=== PATIENT | female | born 1970 | race Caucasian/White ===

== ENCOUNTER 2018-08-27 19:12 | Observation (INO) | payer OTHER ==
--- NOTE | 2018-08-27 19:24 | EDPHY ---
HPI/HX/ROS/PE/MDM Narrative: CHIEF COMPLAINT: Possible leg infection HPI: This patient is a generally healthy 48-year-old female. She returned tonight from a trip to [place] and is concerned due to an infection in her leg secondary to a cut she sustained while travelling. On Wednesday or Wednesday, she cut her zuniga on the edge of a wooden bed frame. Following this, she swam in [facility] and pools in [facility]. She noted surrounding erythema on Wednesday, and later that day she saw a doctor in [place]. She was prescribed Clindamycin, which she took on Wednesday and . night she started taking levofloxacin in addition. She and her trip-mates also had a GI illness while traveling and she endorses associated fevers and chills. She denies feeling febrile currently. She notes she has not been able to eat much in several days, but has stayed well -hydrated. Her was also recently diagnosed with strep, and the patient complains of some throat discomfort. No chest pain, shortness of breath, neurologic deficits, or other associated symptoms. REVIEW OF SYSTEMS: A comprehensive 10 system review of systems is otherwise negative aside from elements mentioned in the history of present illness and medical decision making. PMH: Depression SOCIAL HISTORY: . Employed. Lives in [place]. PHYSICAL EXAM: General:Patient is alert, in no acute distress. ENT:Eyes are normal to inspection. ENT inspection normal. Neck: Normal inspection. Full range of motion. Respiratory:No respiratory distress. Breath sounds normal bilaterally. Cardiovascular: Regular rate and rhythm. Strong peripheral pulses. Normal cap refill. Abdomen:The abdomen is nontender to palpation. There are no peritoneal signs. There are normal bowel sounds. Back: Normal to inspection. No tenderness to palpation. Skin: Normal color. No rash. Warm and dry. Extremities: Left leg: Small scabbed abrasion on the anterior zuniga with surrounding erythema and swelling which extends circumferentially from just proximal to the knee to the top of the foot. Right leg: Normal appearance. Full range of motion. Neuro: Oriented x3. Normal motor function. Normal sensory function. ED Course: 48 y/o female presents with left leg cellulitis secondary to a cut she sustained while vacationing in [place]. She has been taking four days of antibiotic therapy (four days Clindamycin TID, two days dual therapy with Levaquin). Plan to consult with infectious disease. Plan for x-ray of the left fibula. Plan for labs including CBC, chemistries, blood cultures. She is afebrile, hemodynamically stable. 19:[address] Langley, infectious disease specialist. Plan to administer 1g IV Rocephin if patient goes home vs. Ancef if the patient stays in hospital. Discussed admission vs. return tomorrow for repeat dose of IV antibiotics. Patient prefers to go home at this time and agrees to return tomorrow morning for a repeat dose. Her first dose of IV ceftriaxone will be administered now. Erythematous region has been marked with a skin-marking pen as of 20:30. 20:45 Patient has agreed to stay for IV antibiotics and observation. I concur that this is medically appropriate plan given the progression of her cellulitis despite dual therapy with oral antibiotics. 20:[address] Franks, hospitalist. He accepts admission for left leg cellulitis. ID to consult tomorrow morning. - Data Points Imaging Results: Imaging Impressions Tibia/Fibula X-Ray 08/27/18 19:37 Impression: No evidence for acute osseous abnormality left tibia and fibula. Laboratory Results: Laboratory Results 08/27/18 19:40 08/27/18 19:40 08/27/18 08/27/18 19:40 19:40 WBC 10.63 10^3/uL H 10^3/uL (3.80-9.50) RBC 4.04 10^6/uL L 10^6/uL (4.18-5.33) Hgb 13.0 g/dL g/dL (12.6-16.3) Hct 38.4 % % (38.0-47.0) MCV 95.0 fL fL (81.5-99.8) MCH 32.2 pg pg (27.9-34.1) MCHC 33.9 g/dL g/dL (32.4-36.7) RDW 12.6 % % (11.5-15.2) Plt Count 209 10^3/uL 10^3/uL (150-400) MPV 9.4 fL fL (8.7-11.7) Neut % (Auto) 73.3 % % (39.3-74.2) Lymph % (Auto) 8.4 % L % (15.0-45.0) Cottle % (Auto) 15.3 % H % (4.5-13.0) Eos % (Auto) 1.9 % % (0.6-7.6) Baso % (Auto) 0.3 % % (0.3-1.7) Nucleat RBC Rel Count 0.0 % % (0.0-0.2) Absolute Neuts (auto) 7.79 10^3/uL H 10^3/uL (1.70-6.50) Absolute Lymphs (auto) 0.89 10^3/uL L 10^3/uL (1.00-3.00) Absolute Monos (auto) 1.63 10^3/uL H 10^3/uL (0.30-0.80) Absolute Eos (auto) 0.20 10^3/uL 10^3/uL (0.03-0.40) Absolute Basos (auto) 0.03 10^3/uL 10^3/uL (0.02-0.10) Absolute Nucleated RBC 0.00 10^3/uL 10^3/uL (0-0.01) Immature Gran % 0.8 % % (0.0-1.1) Immature Gran # 0.09 10^3/uL 10^3/uL (0.00-0.10) RBC/WBC/PLT Morphology TNP Platelet Estimate TNP Sodium 132 mEq/L L mEq/L (135-145) Potassium 3.1 mEq/L L mEq/L (3.5-5.2) Chloride 95 mEq/L L mEq/L (97-110) Carbon Dioxide 26 mEq/l mEq/l (22-31) Anion Gap 11 mEq/L mEq/L (6-14) BUN 6 mg/dL L mg/dL (7-23) Creatinine 0.7 mg/dL mg/dL (0.6-1.0) Estimated GFR > 60 Glucose 89 mg/dL mg/dL (70-100) Calcium 9.2 mg/dL mg/dL (8.5-10.4) Medications Given: Discontinued Medications Ceftriaxone Sodium/Dextrose (Rocephin 1 Gm (Premix)) 50 mls @ 100 mls/hr IV EDNOW ONE PRN Reason: Protocol Stop: 08/27/18 20:47 Last Admin: 08/27/18 20:23 Dose: 50 mls General Time Seen by Provider: 08/27/18 19:19 Initial Vital Signs: Initial Vital Signs Temperature (C) 36.2 C 08/27/18 19:16 Heart Rate 95 08/27/18 19:16 Respiratory Rate 16 08/27/18 19:16 Blood Pressure 103/69 08/27/18 19:16 O2 Sat (%) 98 08/27/18 19:16 O2 Delivery Mode Room Air Allergies/Adverse Reactions: No Known Allergies Allergy (Verified 08/27/18 21:35) Home Medications: Medication Instructions Recorded Cholecalciferol Vit D3 [Vitamin D3 1,000 units PO DAILY PRN 08/27/18 (*)] Citalopram Hydrobromide 10 mg PO DAILY 08/27/18 [Citalopram HBr] Melatonin [Melatonin 3 MG (*)] 3 mg PO HS PRN 08/27/18 Milk Thistle 500 mg PO DAILY PRN 08/27/18 Departure - Departure Disposition: [facility] Inpatient Acute Clinical Impression: Cellulitis Qualifiers: Site of cellulitis: extremity Site of cellulitis of extremity: lower extremity Laterality: left Qualified Code(s): L03.116 - Cellulitis of left lower limb Condition: Fair Report Scribed for: Don Joseph Report Scribed by: Danelle Brooks Date of Report: 08/27/18 Time of Report: 19:24 Physician Review and Approval Statement: Portions of this note were transcribed by an ED scribe. I personally performed the history, physical exam, and medical decision making; and confirm the accuracy of the information in the transcribed note.
[2018-08-27 19:55] LABS: PLATELET COUNT 209 10^3/uL (150-400)
[2018-08-27] MEDS ORDERED: ACETAMINOPHEN 325 MG TAB PO PRN (21:31)
[2018-08-27] MEDS ORDERED: ONDANSETRON DISINTEGRATING 4 MG TAB PO PRN (21:31)
[2018-08-27] MEDS ORDERED: ONDANSETRON 4 MG/2 ML VIAL IVP PRN (21:31)
[2018-08-27] MEDS ORDERED: MELATONIN 3 MG TAB PO PRN (21:40)
--- NOTE | 2018-08-27 21:44 | PDGENHP ---
History and Physical - Chief Complaint Left leg pain and swelling - History of Present Illness Rosio Garcia is a pleasant 48-year-old female with no significant past medical history presented with 4-5 days of left leg pain and swelling. She has been in [facility] for the last week. Around Wednesday she cut herself on the bed at her hotel on her left zuniga. The following day she swam in the ocean and shortly after that started noticing increased pain redness and swelling in her zuniga. She saw local physician who started her on clindamycin 300 mg. Her leg continued to swell and had more redness so she saw the physician again who started her on Levaquin 750 mg. This did not help either and her leg continued to swell and became more painful and erythematous. She flew back from [place] today and came directly to the hospital. She has not had any fevers or chills. Her leg feels like a "bad sunburn" and is very painful to try to walk on. She also has some mild GI upset which she attributes to the antibiotics although she says everybody in her group developed GI upset after swimming in the ocean. She denied any nausea vomiting or other symptoms. History Information - Allergies/Home Medication List Allergies/Adverse Reactions: No Known Allergies Allergy (Verified 08/27/18 21:35) Home Medications: Cholecalciferol Vit D3 [Vitamin D3 (*)] 1,000 units PO DAILY PRN 08/27/18 [Last Taken 08/20/18] Citalopram Hydrobromide [Citalopram HBr] 10 mg PO DAILY 08/27/18 [Last Taken 09:00] Melatonin [Melatonin 3 MG (*)] 3 mg PO HS PRN 08/27/18 [Last Taken Unknown] Milk Thistle 500 mg PO DAILY PRN 08/27/18 [Last Taken 08/20/18] I have personally reviewed and updated: family history, medical history, social history, surgical history - Past Medical History no pertinent PMH - Surgical History Reports: no pertinent surgical hx - Family History Positive for: non-pertinent - Social History Smoking Status: Never smoked Alcohol Use: Occasionally Drug Use: Marijuana Review of Systems Review of Systems: ROS: 10pt was reviewed & negative except for what was stated in HPI & below Physical Exam Physical Exam: Temp Pulse Resp BP Pulse Ox 37.2 C 82 18 108/65 93 08/27/18 21:20 08/27/18 21:20 08/27/18 21:20 08/27/18 21:20 08/27/18 21:20 Constitutional: no apparent distress, appears nourished, not in pain Eyes: PERRL, anicteric sclera, EOMI Ears, Nose, Mouth, Throat: moist mucous membranes, hearing normal, ears appear normal, no oral mucosal ulcers Cardiovascular: regular rate and rhythym, no murmur, rub, or gallop, No edema Respiratory: no respiratory distress, no rales or rhonchi, clear to auscultation Gastrointestinal: normoactive bowel sounds, soft, non-tender abdomen, no palpable masses Genitourinary: no bladder fullness, no bladder tenderness Skin: other (Left leg with significant erythema extending from the foot all the way up to the top of her calf. She has a small 1 and 0.5 cm scabbed laceration on the anterior portion of her left calf she has pitting edema and erythema throughout.), No mottled Musculoskeletal: full muscle strength, no muscle tenderness, normal joint ROM, no joint effusions Psychiatric: interacting appropriately, not anxious, not encephalopathic, thought process linear Lymph, Heme, Immunologic: no cervical LAD, no supraclavicular LAD Lab Data & Imaging Review 08/27/18 19:40 08/27/18 19:40 WBC 10.63 10^3/uL (3.80-9.50) H 08/27/18 19:40 RBC 4.04 10^6/uL (4.18-5.33) L 08/27/18 19:40 Hgb 13.0 g/dL (12.6-16.3) 08/27/18 19:40 Hct 38.4 % (38.0-47.0) 08/27/18 19:40 MCV 95.0 fL (81.5-99.8) 08/27/18 19:40 MCH 32.2 pg (27.9-34.1) 08/27/18 19:40 MCHC 33.9 g/dL (32.4-36.7) 08/27/18 19:40 RDW 12.6 % (11.5-15.2) 08/27/18 19:40 Plt Count 209 10^3/uL (150-400) 08/27/18 19:40 MPV 9.4 fL (8.7-11.7) 08/27/18 19:40 Neut % (Auto) 73.3 % (39.3-74.2) 08/27/18 19:40 Lymph % (Auto) 8.4 % (15.0-45.0) L 08/27/18 19:40 Dickenson % (Auto) 15.3 % (4.5-13.0) H 08/27/18 19:40 Eos % (Auto) 1.9 % (0.6-7.6) 08/27/18 19:40 Baso % (Auto) 0.3 % (0.3-1.7) 08/27/18 19:40 Nucleat RBC Rel Count 0.0 % (0.0-0.2) 08/27/18 19:40 Absolute Neuts (auto) 7.79 10^3/uL (1.70-6.50) H 08/27/18 19:40 Absolute Lymphs (auto) 0.89 10^3/uL (1.00-3.00) L 08/27/18 19:40 Absolute Monos (auto) 1.63 10^3/uL (0.30-0.80) H 08/27/18 19:40 Absolute Eos (auto) 0.20 10^3/uL (0.03-0.40) 08/27/18 19:40 Absolute Basos (auto) 0.03 10^3/uL (0.02-0.10) 08/27/18 19:40 Absolute Nucleated RBC 0.00 10^3/uL (0-0.01) 08/27/18 19:40 Immature Gran % 0.8 % (0.0-1.1) 08/27/18 19:40 Immature Gran # 0.09 10^3/uL (0.00-0.10) 08/27/18 19:40 RBC/WBC/PLT Morphology TNP 08/27/18 19:40 Platelet Estimate TNP 08/27/18 19:40 Sodium 132 mEq/L (135-145) L 08/27/18 19:40 Potassium 3.1 mEq/L (3.5-5.2) L 08/27/18 19:40 Chloride 95 mEq/L (97-110) L 08/27/18 19:40 Carbon Dioxide 26 mEq/l (22-31) 08/27/18 19:40 Anion Gap 11 mEq/L (6-14) 08/27/18 19:40 BUN 6 mg/dL (7-23) L 08/27/18 19:40 Creatinine 0.7 mg/dL (0.6-1.0) 08/27/18 19:40 Estimated GFR > 60 08/27/18 19:40 Glucose 89 mg/dL (70-100) 08/27/18 19:40 Calcium 9.2 mg/dL (8.5-10.4) 08/27/18 19:40 Assessment & Plan Assessment: 48-year-old healthy female who just returned home from [place] with a left lower extremity cellulitis Cellulitis- she has a mildly elevated white count and pretty obvious cellulitis on her left lower extremity that has not responded to clindamycin or Levaquin. Alta Langley from Infectious Disease was consulted who recommended SNF or Rocephin. Patient was given a 1g Rocephin in the emergency room and cultures were obtained. Etiology is still most likely MSSA/MRSA but given her exposure to water could be vibrio vulnificus. -continue Rocephin -id consulted -monitor cultures Hyponatremia- suspect prerenal azotemia in the setting of dehydration and GI upset. I have ordered intravenous saline over night and will recheck her serum sodium in the morning Hypokalemia- also likely from poor intake. I have ordered potassium chloride and will recheck her serum potassium in the morning Depression- resume home Celexa. Prophylaxis- no SCDs, Lovenox Fluids-intravenous saline Electrolytes-low K and low sodium Nutrition-regular diet Cor-full Dispo-observation
[2018-08-27] MEDS ORDERED: NS 1,000 ML IV SCH (21:45)
[2018-08-27] MEDS ORDERED: POTASSIUM CL 20 MEQ/15 ML UDCUP PO ONE (21:50)
[2018-08-27] MEDS: HYDROCODONE/APAP 5/325 TAB PO PRN (22:37)
[2018-08-28] MEDS: ZOLPIDEM TARTRATE 5 MG TAB PO PRN ×2 (00:47→23:05)
[2018-08-28 05:06] LABS: PLATELET COUNT 192 10^3/uL (150-400)
[2018-08-28] MEDS: CITALOPRAM 20 MG TAB PO SCH (09:22)
[2018-08-28] MEDS: ENOXAPARIN 40 MG/0.4 ML SYR SC SCH (09:23)
--- NOTE | 2018-08-28 11:58 | HOSPPROG ---
Hospitalist Progress Note Assessment/Plan: 48-year-old healthy female who just returned home from [place] with a left lower extremity cellulitis LLE cellulitis - improved compared to previous photo, appreciate ID assistance -continue Rocephin -monitor cultures Hyponatremia- resolved Hypokalemia- resolved Depression- cont home Celexa. Prophylaxis- Lovenox Cor-full Dispo-change to inpt for ongoing IV atbx needs Subjective: Pt feels better. Less swelling and pain of LLE. No fevers overnight. Taking po well. In good spirits. Objective: Vital Signs Temp Pulse Resp BP Pulse Ox 37.0 C 74 14 106/68 95 08/28/18 08:15 08/28/18 08:15 08/28/18 08:15 08/28/18 08:15 08/28/18 08:15 Laboratory Results 08/28/18 04:48 08/28/18 04:48 08/27/18 08/28/18 08/29/18 05:59 05:59 05:59 Intake Total 670 Output Total 2500 Balance -1830 - Physical Exam Constitutional: no apparent distress Eyes: PERRL Ears, Nose, Mouth, Throat: moist mucous membranes Cardiovascular: regular rate and rhythym Respiratory: no respiratory distress, clear to auscultation Gastrointestinal: normoactive bowel sounds, soft, non-tender abdomen Skin: warm Musculoskeletal: full muscle strength, other (LLE with decreased erythema, still warm to touch with some redness, decreased swelling) Neurologic: AAOx3 Psychiatric: interacting appropriately ICD10 Worksheet Patient Problems: Problems Problem Status Onset Cellulitis Acute
--- NOTE | 2018-08-28 12:21 | ASMTCMCOM ---
CM Note CM Note Notes: Pt admitted for LLE cellulitis secondary to a cut she sustained while vacationing in [place] last week. ID consulted. Pt receiving IV antibiotics. Today's progress note says pt is improving. Anticipate pt to stabilize and DC home Ind w/ and to followup outpatient. Pt's PCP is listed as Dr Aminta Payne at [facility]. CM available for assistance if the needs arise. Date Signed: 08/28/2018 12:20 PM Electronically Signed By:Helena Casas RN
[2018-08-28] MEDS: HYDROCODONE/APAP 5/325 TAB PO PRN ×3 (14:25→21:28)
[2018-08-28] MEDS: valACYclovir 500 MG TAB PO SCH ×2 (14:29→21:27)
[2018-08-28] MEDS ORDERED: HYDROmorphONE/DILAUDID 1 MG/ML INJ IVP PRN (17:54)
--- NOTE | 2018-08-28 19:50 | PDMN ---
Medical Necessity Medical necessity: [facility] M70 cellulitis: 48yoF who was in [place] scraped her leg and also swimming in ocean- leg got worse saw MD in [place] started abx. leg still worse flew home and came directly to ED leg with LLE cellulitis status changed to INPT for ongoing med nec care; further monitoring and tx of cellulitis > 2 MN- ID consult pend. IV abx, IVF, IV pain,
--- NOTE | 2018-08-28 21:49 | GCON ---
[f rep st] CONSULTATION INFECTIOUS DISEASE CONSULTATION DATE OF CONSULTATION: 08/28/2018 REASON FOR CONSULTATION: Left lower extremity cellulitis, not responding to oral antibiotics. HISTORY OF PRESENT ILLNESS: This is a 48-year-old healthy, active woman who with her family was recently traveling to a town outside of [facility], and sustained trauma to her left mid zuniga on August 19, on the edge of the bed. She subsequently spent the 2 following days at the beach and developed progressive pain and redness of her left anterior zuniga, and she eventually went to seek care locally in [place] on August 24, and she was started on clindamycin at about noon. She had not received antibiotics for about 5 years previously. She continued to participate in daily activities in [place] but continued to have worsening pain, and on went back to the doctor, and on the , she was started on Levaquin. She took a dose of Levaquin , Wednesday, and Wednesday, and [place] and came straight to the emergency room. In the emergency room, she was noted to have left lower extremity cellulitis that was in a stocking distribution on her left lower extremity with obvious healing laceration mid zuniga. No associated fluctuance in that area. She was also noted to have a mild leukocytosis. Normal creatinine. In the emergency room, she was given a dose of IV ceftriaxone and was admitted to the hospital for ongoing monitoring. REVIEW OF SYSTEMS: A complete 10-point review of systems was performed and is negative, except as mentioned in the HPI. In addition to her skin infection, she also had a GI illness while she was there that was primarily nausea and vomiting, which occurred Wednesday and Wednesday. That has now resolved. Of note , her recently had strep throat, which was treated during the course of their travels. No other sick contacts. She did describe associated malaise prior to admission to the hospital and does endorse subjective fever, chills. PAST MEDICAL HISTORY: Depression. PAST SURGICAL HISTORY: Removal of a uterine septum. SOCIAL HISTORY: She has 2 children. She is . She lives in [place]. Travel as per HPI. FAMILY HISTORY: She had a paternal grandfather with an GA at 60, and maternal grandfather with a stroke at 70. ALLERGIES: NKDA. MEDICATIONS: Outpatient antibiotics as per HPI. Current ceftriaxone 1 g IV daily. PHYSICAL EXAM: VITAL SIGNS: Blood pressure 102/71, heart rate 68, respiratory rate 16, sat 96% on room air, temperature 36.8. She has been afebrile throughout her hospital course. GENERAL: This is a very pleasant, well- appearing woman sitting up in bed. No acute distress. HEENT: Good dentition. Moist mucous membranes. No oral ulcerations or exudate. She has an ulcer on her right lower lip consistent with HSV. NECK: Supple. CARDIOVASCULAR: Regular rate. No murmurs. CHEST: Clear to auscultation bilaterally. ABDOMEN : Soft, nontender. Bowel sounds are present. EXTREMITIES: She has erythema in the stocking distribution left lower extremity with more intense areas along the medial ankle and associated with mid zuniga laceration. Slight recession from prior lines, and compared to reviewed pictures that are taken upon initial arrival to the emergency room, intensity of the erythema is about 25% improved. She also has some wrinkling of the skin consistent with some improvement in the swelling. She has 2+ dorsalis pedis pulses, and normal capillary refill. Her range of motion at both her knee and her ankle are intact. No purulence is coming from her laceration site. She has an area of noninvolvement of the posterior lateral calf in a strip-like distribution. No crepitus is appreciated. She has no streaking of erythema on her thigh. NEUROLOGICALLY: She is alert and oriented x4. Moving all 4 extremities equally. SKIN: No rashes other than what is noted below, and she has multiple lacerations noted on her right anterior zuniga as well. LABORATORY DATA: White count on admission 10.6, today 7.3. Hematocrit 35, platelets of 192, 65% neutrophils, and 18% lymphocytes. Creatinine 0.7. Blood cultures were collected in the emergency room and are pending. ASSESSMENT AND PLAN: # Left lower extremity cellulitis precipitated by trauma to the left mid zuniga with the edge of a bed. Patient did not seem to respond to therapy with clindamycin and levofloxacin. Reasons for this explanation could be strep resistant to clindamycin and Levaquin being less favorable coverage for streptococcus group A & B. Also could consider methicillin-resistant Staphylococcus aureus, which there is fairly high resistance rate to clindamycin. Finally, less likely I think of gram-negative pathogens, although patient did have exposure to ocean water, which had a fairly significant level of contamination as fecal material/sewage is being dumped into the water where they were staying, but lack of response to levofloxacin, which would have excellent gram-negative coverage, makes this less likely. Also discussed the potential of deeper-seated infection such as abscess, osteomyelitis. Today, patient does seem to have measures of improvement including less swelling, less intense erythema, although the pain is stable. Still strongly suspect this is mediated by streptococcal disease, relating to her 's recent bout with group A strep pharyngitis. 1. Will continue intravenous ceftriaxone, hedging the bet that it is group A strep or other strep species but also having a bit broader gram-negative coverage in light of contaminated water exposure. 2. Another potential reason for lack of improvement is disease mediated by methicillin-resistant Staphylococcus aureus. Will continue to follow closely and adjust antibiotics as feasible. 3. Discussed the possibility of needing imaging if lack of improvement, but at this point with slight improvement, would hold off on further imaging. 4. Discussed risks and benefits of intravenous antibiotic therapy and potential side effects. 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 Will continue to see the patient on a daily basis. /[id number]/MODL MTDD
[2018-08-29] MEDS ORDERED: NS 1,000 ML IV SCH (07:00)
[2018-08-29 08:43] VITALS: BP 128/78
[2018-08-29] MEDS: CITALOPRAM 20 MG TAB PO SCH (10:18)
[2018-08-29] MEDS: ENOXAPARIN 40 MG/0.4 ML SYR SC SCH (10:18)
--- NOTE | 2018-08-29 11:02 | PCMIDPN ---
Assessment/Plan: Assessment: 48-year-old woman with left lower extremity cellulitis secondary to a traumatic break in the skin that has improved dramatically over the past 24 hr. With her overall clinical improvement the fact that she received her dose of ceftriaxone today feel comfortable with her discharging home as she is able to ambulate, tolerate oral intake, and is not having diarrhea so she can transition to oral step-down therapy. It is feasible that she may have a bit of fluid collection underneath the skin defect in the mid zuniga but this will only come to become apparent with time. 1. Left lower extremity cellulitis; improved Plan: 1. Start Augmentin 500/125 q.8 hours x7 days to start on 08/30/2018 2. Follow up with infectious diseases scheduled for 09/01 3. Reviewed in detail potential side effects of beta-lactam antibiotics to include: allergy, rash, nausea, antibiotic-associated diarrhea, Clostridioides difficile colitis. Rangel Soto MD Infectious Diseases 08/29/18 11:55 Subjective: No fever or chills in the past 24-hours. Tolerating oral diet with solids and liquids. No diarrhea, nausea, or other GI symptoms. No rash. Appetite improving. Improved since admission but not back to baseline health. Objective: Vital Signs Temp Pulse Resp BP Pulse Ox 37.0 C 75 14 128/78 H 91 L 08/29/18 08:00 08/29/18 08:00 08/29/18 08:00 08/29/18 08:00 08/29/18 08:00 08/28/18 08/29/18 08/30/18 05:59 05:59 05:59 Intake Total 1999 Output Total 1900 Balance 100 Medications Generic Name Dose Route Start Last Admin Trade Name Freq PRN Reason Stop Dose Admin Ceftriaxone Sodium/Dextrose 50 mls @ 100 mls/hr 08/28/18 09:00 08/29/18 10:18 Rocephin 1 Gm (Premix) IV 09/27/18 08:59 50 mls DAILY LI Protocol Microbiology 08/27/18 20:04 Blood Blood Culture - Preliminary 08/27/18 19:40 Blood Blood Culture - Preliminary Laboratory Tests 08/27/18 08/27/18 08/28/18 19:40 19:40 04:48 WBC 10.63 H 7.33 Hgb 13.0 11.9 L Plt Count 209 192 Creatinine 0.7 08/28/18 04:48 WBC Hgb Plt Count Creatinine 0.7 - Physical Exam General Appearance: no apparent distress, non-toxic EENT: No scleral icterus Respiratory: No respiratory distress, No accessory muscle use Neck: supple Extremities: other (Left lower extremity anterior zuniga with improving erythema, wrinkling of the skin, significant retraction from the drawn on line marking the edge of erythema and admission, possible fluid beneath the eschar over the mid zuniga; minimal tenderness to palpation) Neuro/Psych: alert, normal mood/affect, oriented x 3, No confused ICD10 Worksheet Patient Problems: Problems Problem Status Onset Cellulitis Acute
--- NOTE | 2018-08-29 11:23 | ASDISCHSUM ---
Discharge Information Plan Status:Home with No Needs Medically Cleared to Leave:08/29/2018 Discharge Date:08/29/2018 CM D/C Disposition:Home, Routine, Self-Care ADT D/C Disposition:Home, Routine, Self-Care Projected Discharge Date:08/29/2018 Transportation at D/C:Family Discharge Delay Reason: Follow-Up Date:08/29/2018 Discharge Slot: Final Diagnosis:cellulitis Placement Information Patient Contact Information Contact Name:SANTY Relationship: Address:[address] City:[place] Alternate Phone: State/Zip Code:[place] [address] Email: Financial Information Financial Class:HMO and PPO Plans Primary Plan Desc:[employer]/POS PPO Primary Plan Number:[id number] Secondary Plan Desc: Secondary Plan Number: Assessment Information [facility] Progress Note CM Note CM Note Notes: Pt admitted for LLE cellulitis secondary to a cut she sustained while vacationing in [place] last week. ID consulted. Pt receiving IV antibiotics. Today's progress note says pt is improving. Anticipate pt to stabilize and DC home Ind w/ and to followup outpatient. Pt's PCP is listed as Dr Aminta Payne at [facility]. CM available for assistance if the needs arise. Date Signed: 08/28/2018 12:20 PM Electronically Signed By:Helena Casas RN LACE LACE Length of stay for Answers: 1 day current admission Acuity / Level of Answers: Yes Care: Did the patient have an inpatient admission? # of Emergency department Answers: 1-2 visits in the last 6 months Social determinants Answers: Mental health diagnosis (anxiety, depression, pers onality disorders, etc.) Score: 8 Date Signed: 08/29/2018 11:19 AM Electronically Signed By:Ilsa Luciano Case Management Discharge Plan Note Case Management Discharge Discharge Order Complete? Answers: Yes Patient to Obtain Answers: via Family Medications Transportation Arranged Answers: Family/Friends Transport will Pick (Date 08/29/2018 12:00 AM & Time) Family Notified Answers: Yes Notes: by pt Discharge Comments Notes: Spoke with pt in the room. Pt to discharge independently with support from . No CM needs noted at this time. Date Signed: 08/29/2018 11:18 AM Electronically Signed By:Ilsa Luciano Intervention Information
--- NOTE | 2018-08-29 20:07 | GDS ---
[f rep st] DISCHARGE SUMMARY DISCHARGE DIAGNOSES: 1. Left lower extremity cellulitis. 2. Hyponatremia. 3. Hypokalemia. 4. History of depression. CONSULTATIONS: Infectious Disease. STUDIES AND PROCEDURES: Tibia-fibula x-ray. PHYSICAL EXAM: GENERAL: The patient is alert. VITAL SIGNS: Afebrile at 37, pulse 75, respiratory rate 14, blood pressure is 128/78. She is saturating 91% on room air. I have seen evaluated the pat ient on the day of discharge. HOSPITAL COURSE: The patient is a 48-year-old female who presented to the hospital after returning f [facility] with complaints of left lower extremity redness. She was evaluated and diagnosed with: 1. Severe left lower extremity cellulitis. During this hospitalization, she received an infectious disease consultation. She was treated with ceftriaxone. Her condition has significantly improved. I reviewed her care with Infectious Disease who is comfortable with her being discharged. She will g o on Augmentin 500 t.i.d. for a total of 7 days with followup with Infectious Disease. I have instru cted her to return to the emergency room if her condition worsens, if she develops fever, or has any concerns regarding her left lower extremity. 2. Hyponatremia. This has resolved. 3. Hypokalemia. This has resolved. 4. History of depression. Her home medications have been continued with no signs of depression. 5. Disposition. She will be discharged home independently with oral antibiotics. FOLLOWUP: With Dr. Alta Langley on 09/01/2018 at 3:30 in the afternoon. She will also follow up with her primary care physician. DISCHARGE MEDICATIONS: Prescriptions for Augmentin 500 t.i.d., as well as Berger. I spent greater than 35 minutes in the care, coordination, and management of this patient's discharge . /[id number]/MODL
== END 2018-08-29 12:57 | disposition home or self-care (01) ==
LOC: F3E 22:01 → OBSVTOIN 08-28 11:59 → INTOOBSV 08-28 11:59
PROVIDERS: ADMIT Internal Medicine; ATTEND Student in an Organized Health Care Education/Training Program
DX: L03.116 Cellulitis of left lower limb (principal); E87.1 Hypo-osmolality and hyponatremia; E87.6 Hypokalemia; S81.812D Laceration without foreign body, left lower leg, subsequent encounter; W22.09XD Striking against other stationary object, subsequent encounter; F32.9 Major depressive disorder, single episode, unspecified
CPT/HCPCS: 73590; 96365; 99285; G0378; J0696; J1170; J1650

== ENCOUNTER → 2018-09-01 | Outpatient (CLI) | payer OTHER | LOC: FIMAGING 16:28 | PROVIDERS: ATTEND Internal Medicine Infectious Disease | DX: R60.0 Localized edema (principal) ==